=== PATIENT | male | born 1985 | race Caucasian/White ===

== ENCOUNTER 2020-02-24 20:53 | Emergency (ER) | payer BC ==
[2020-02-24] MEDS ORDERED: Amoxicillin/Clavulanate K 875-125 MG Tab PO ONE (21:02)
[2020-02-24] MEDS ORDERED: Bacitracin Oint 1 GM U/D Packet TOP ONE (21:02)
[2020-02-24] MEDS ORDERED: Lidocaine 1% 10 ML MDV INJECT ONE ×2 (21:02→22:09)
--- NOTE | 2020-02-24 21:02 | EDM.PDOC ---
ED HPI GENERAL MEDICAL PROBLEM - General Chief Complaint: Bite:Animal, Insect Stated Complaint: DOG BITE Time Seen by Provider: 02/24/20 21:00 Source of Information: Reports: Patient History Limitations: Reports: No Limitations - History of Present Illness INITIAL COMMENTS - FREE TEXT/NARRATIVE: HISTORY AND PHYSICAL: History of present illness: Is a 35-year-old male who presents to the emergency room with complaints of a laceration/dog bite to his distal left third digit. This is along the nailbed although does not go through the nail itself. States his tetanus has been u pdated in the last 2 years. His dog's immunizations are up-to-date. He offers no systemic complaints or concerns. Review of systems: As per history of present illness and below otherwise all systems reviewed and negative. Past medical history: As per history of present illness and as reviewed below otherwise noncontributory. Surgical history: As per history of present illness and as reviewed below otherwise noncontributory. Social history: See social history for further information Family history: As per history of present illness and as reviewed below otherwise noncontributory. Physical exam: General: Well developed and well nourished 35-year-old male. Alert and oriented. Nontoxic-appearing and in no acute distress. HEENT: Atraumatic, normocephalic, pupils equal and reactive bilaterally, negative for conjunctival pallor or scleral icterus, mucous membranes moist, TMs normal bilaterally, throat clear, neck supple, nontender, trachea midline. No drooling or trismus noted. No meningeal signs. No hot potato voice noted. Lungs: Clear to auscultation, breath sounds equal bilaterally, chest nontender. Heart: S1S2, regular rate and rhythm without overt murmur Abdomen: Soft, nondistended, nontender. Skin: 2.5 cm laceration to distal finger tip of left 3rd digit, does not involve the nail. Tissue swelling noted at site. Otherwise skin is intact, warm, dry. No lesions or rashes noted. Extremities: See SKIN for details. He moves all extremities per self without difficulty or deficits. Neurovascular unremarkable. Neuro: Awake, alert, oriented. Cranial nerves II through XII unremarkable. Cerebellum unremarkable. Motor and sensory unremarkable throughout. Exam nonfocal. Notes: 3 shows a minimally comminuted and displaced fracture in the distal tuft of the left third digit. Soft tissue injury is noted. 1% lidocaine was used to anesthetize the area. The area was thoroughly cleansed and irrigated with wound wash and chlorhexidine. 4-0 nylon, #5 interrupted sutures were placed to tack the skin together. We discussed in great length signs and symptoms that would prompt him to return to the emergency room and for the need for follow-up with the hand surgeon. I did give him the hand surgeon information with instruction for follow-up. Spoon splint was given for comfort. Follow-up, medication and supportive care measures were reviewed and discussed. Voices understanding and is agreeable to plan of care. Denies any further questions or concerns at this time. Diagnostics: Finger x-ray Therapeutics: Lidocaine, Augmentin, Bacitracin, finger splint Prescription: Augmentin, [place] Impression: Dog bite Tuft fracture Plan: 1. Gently wash the area with mild soap and water twice daily. Keep the area clean and dry. Continue to monitor for signs of infection. This type of injury is high risk of infection. If your symptoms should worsen, new symptoms develop or any of the signs and symptoms we discussed should arise please return to the emergency room or call 911 (if needed). 2. Sutures to be removed in 7-10 days. The antibiotic as prescribed. 3. Tylenol and/or ibuprofen as needed for pain management. 4. Please follow-up with hand surgeon should any complications develop as we discussed. Definitive disposition and diagnosis as appropriate pending reevaluation and review of above. Left Finger-Middle Pain Score (Numeric/FACES): 5 - Related Data Allergies Allergy/AdvReac Type Severity Reaction Status Date / Time banana Allergy Other Verified 02/24/20 21:26 Home Meds: Home Meds Venlafaxine HCl [Venlafaxine ER] 150 mg PO DAILY 02/24/20 [History] lamoTRIgine [Lamictal] 300 mg PO DAILY 02/24/20 [History] ED ROS GENERAL - Review of Systems Review Of Systems: Comprehensive ROS is negative, except as noted in HPI. ED EXAM, ANIMAL BITE - Physical Exam Exam: See Below (See dictation) ED ANIMAL BITE PROCEDURES - Laceration/Wound Repair Left 3rd digit Lac/Wound Length In cm: 2.5 Appearance: Subcutaneous, Irregular Distal NVT: Neuro & Vascular Intact, No Tendon Injury Anesthetic Type: Local Local Anesthesia - Lidocaine (Xylocaine): 1% Plain Local Anesthetic Volume: 5cc Skin Prep: Chlorhexidine (Hibiciens), Saline, Sterile Drape Saline Irrigation (cc's): 500 Exploration/Debridement/Repair: Wound Explored, In a Bloodless Field, Explored to Base, No Foreign Material Found Closed With: Sutures Suture Size: 4-0 Suture Type: Nylon, Interrupted, Simple # of Sutures: 5 Drain Placement: No Sterile Dressing Applied: Provider Tetanus Status Addressed: Yes Complications: No Course - Vital Signs Last Recorded V/S: Last Vital Signs Temp 96.0 F L 02/24/20 21:04 Pulse 109 H 02/24/20 21:04 Resp 20 02/24/20 21:04 BP 156/83 H 02/24/20 21:04 Pulse Ox 94 L 02/24/20 21:04 - Orders/Labs/Meds Orders: Active Orders 24 hr Category Date Time Status Communication Order [RC] STAT Care 02/24/20 21:10 Ordered Vaccines to be Administered [RC] PER UNIT ROUTINE Care 02/24/20 21:03 Active DME for Discharge [COMM] Stat Oth 02/24/20 21:10 Ordered Meds: Medications Discontinued Medications Generic Name Dose Route Start Last Admin Trade Name Freq PRN Reason Stop Dose Admin Amoxicillin/Clavulanate Potassium 1 tab 02/24/20 21:02 Augmentin 875 Mg/125 Mg PO 02/24/20 21:03 ONETIME ONE Bacitracin 1 dose 02/24/20 21:02 Bacitracin Oint 1 Gm TOP 02/24/20 21:03 ONETIME ONE Diphtheria/Tetanus/Acell Pertussis 0.5 ml 02/24/20 21:03 Adacel IM 02/24/20 21:04 .ONCE ONE Lidocaine HCl 10 ml 02/24/20 21:02 Xylocaine 1% INJECT 02/24/20 21:03 ONETIME ONE Lidocaine HCl Confirm 02/24/20 21:05 Xylocaine-Mpf 1% Administered 02/24/20 21:06 Dose 5 ml .ROUTE .STK-MED ONE Lidocaine HCl Confirm 02/24/20 21:14 Xylocaine-Mpf 1% Administered 02/24/20 21:15 Dose 5 ml .ROUTE .STK-MED ONE Departure - Departure Time of Disposition: 21:36 Disposition: Home, Self-Care 01 Clinical Impression: Open fracture of tuft of distal phalanx of finger Dog bite Qualifiers: Encounter type: initial encounter Qualified Code(s): W54.0XXA - Bitten by dog, initial encounter - Discharge Information Instructions: Animal Bite, Adult, [id number], Finger Fracture, Adult, [id number] Referrals: Jerome Phelps MD [Primary Care Provider] - Forms: ED Department Discharge Additional Instructions: The following information is given to patients seen in the emergency department who are being discharged to home. This information is to outline your options for follow-up care. We provide all patients seen in our emergency department with a follow-up referral. The need for follow-up, as well as the timing and circumstances, are variable depending upon the specifics of your emergency department visit. If you don't have a primary care physician on staff, we will provide you with a referral. We always advise you to contact your personal physician following an emergency department visit to inform them of the circumstance of the visit and for follow-up with them and/or the need for any referrals to a consulting specialist. The emergency department will also refer you to a specialist when appropriate. This referral assures that you have the opportunity for follow-up care with a specialist. All of these measure are taken in an effort to provide you with optimal care, which includes your follow-up. Under all circumstances we always encourage you to contact your private physician who remains a resource for coordinating your care. When calling for follow-up care, please make the office aware that this follow-up is from your r ecent emergency room visit. If for any reason you are refused follow-up, please contact the [facility] at and asked to speak to the emergency department charge nurse. Dr. Grijalva & Dr. Batres (HAND SURGEON) [place] [address] [place] [address] Thank you for choosing the [facility] emergency department in [place] for your medical needs today. It was a pleasure caring for you. You were seen in the emergency department for dog bite/finger injury. Your x-ray showed a fracture to the distal tip of your finger. This is considered an open fracture as you have a laceration involved with it. Please keep in mind this puts you at high risk for infection. 1. Gently wash the area with mild soap and water twice daily. Keep the area clean and dry. Continue to monitor for signs of infection. This type of injury is high risk of infection. If your symptoms should worsen, new symptoms develop or any of the signs and symptoms we discussed should arise please return to the emergency room or call 911 (if needed). 2. Sutures to be removed in 7-10 days. The antibiotic as prescribed. 3. Tylenol and/or ibuprofen as needed for pain management. 4. Please follow-up with hand surgeon should any complications develop as we discussed. Sepsis Event Note (ED) - Focused Exam Vital Signs: Vital Signs Temp Pulse Resp BP Pulse Ox 02/24/20 21:04 96.0 F L 109 H 20 156/83 H 94 L - My Orders Last 24 Hours: My Active Orders 02/24/20 21:03 Vaccines to be Administered [RC] PER UNIT ROUTINE 02/24/20 21:10 Communication Order [RC] STAT DME for Discharge [COMM] Stat - Assessment/Plan Last 24 Hours: My Active Orders 02/24/20 21:03 Vaccines to be Administered [RC] PER UNIT ROUTINE 02/24/20 21:10 Communication Order [RC] STAT DME for Discharge [COMM] Stat
[2020-02-24] MEDS ORDERED: Diphtheria,Pertussis(Acell),Tetanus Vaccine 0.5 ML Syringe IM ONE (21:03)
--- NOTE | 2020-02-24 21:33 | CR ---
Left third finger: 3 views of the left third finger were obtained. Minimally comminuted and displaced fracture is seen within the distal tuft of the left third finger. Soft tissue injury is noted. No proximal abnormality is seen. Slight cortical thickening is seen within the fifth metacarpal most likely representing old fracture which is healed. Impression: 1. Distal left third finger injury as noted above. Diagnostic code #3 This report was dictated in MDT
== END 2020-02-24 22:32 | disposition home or self-care (01) ==
LOC: MW.ED 20:53
DX: S62.633B Displaced fracture of distal phalanx of left middle finger, initial encounter for open fracture (principal); Z91.018 Allergy to other foods; Z79.899 Other long term (current) drug therapy; W54.0XXA Bitten by dog, initial encounter
CPT/HCPCS: 12001; 73140; 99283; A9270; J2001

== ENCOUNTER 2023-04-09 18:03 | Emergency (ER) | payer BC ==
[2023-04-09] MEDS ORDERED: Sodium Chloride 0.9% 10 ML Syringe FLUSH PRN (20:23)
[2023-04-09] MEDS ORDERED: Sodium Chloride 0.9% 2.5 ML Syringe FLUSH PRN (20:23)
[2023-04-09] MEDS ORDERED: Acetaminophen 500 MG Tab PO STA (20:25)
[2023-04-09] MEDS ORDERED: Ondansetron 4 MG/2 ML SDV IVPUSH STA (20:25)
[2023-04-09] MEDS ORDERED: Sodium Chloride 0.9% 1,000 ML IV STA (20:25)
[2023-04-09 21:06] LABS: BASOPHILS PERCENT AUTO 0.5 % (0.0-1.5); EOSINOPHILS PERCENT AUTO 0.3 % (0.0-7.0); HEMOGLOBIN 16.7 g/dL (13.0-17.0); LYMPHOCYTES ABSOLUTE AUTO 1.6 K/uL (0.6-2.4); LYMPHOCYTES PERCENT AUTO 17.8 % (16.0-40.0); MEAN CORPUSCULAR HEMOGLOBIN 32.7 pg (27.0-32.0); MEAN CORPUSCULAR HGB CONC 34.8 g/dL (31.0-37.0); MEAN CORPUSCULAR VOLUME 93.9 fL (80.0-98.0); MONOCYTES ABSOLUTE AUTO 1.3 K/uL (0.0-0.8); MONOCYTES PERCENT AUTO 14.3 % (0.0-15.0); NEUTROPHILS ABSOLUTE AUTO 5.9 K/uL (1.4-5.7); NEUTROPHILS PERCENT AUTO 67.1 % (48.0-80.0); NRBC ABSOLUTE 0 K/uL; PLATELET COUNT,PLT 199 K/uL (150-400); RED BLOOD CELL COUNT 5.11 M/uL (4.50-5.90); WHITE BLOOD CELL COUNT,WBC 8.83 K/uL (4.0-11.0)
[2023-04-09 21:19] LABS: INR 0.98 (0.86-1.11)
[2023-04-09 21:46] LABS: APPEARANCE,URINE CLEAR; BILIRUBIN,URINE NEGATIVE (NEGATIVE); COLOR,URINE YELLOW; GLUCOSE,URINE NEGATIVE (NEGATIVE); KETONES,URINE NEGATIVE (NEGATIVE); LEUKOCYTE ESTERASE,URINE NEGATIVE (NEGATIVE); NITRITE,URINE NEGATIVE (NEGATIVE); OCCULT BLOOD,URINE NEGATIVE (NEGATIVE); PROTEIN,URINE NEGATIVE (NEGATIVE); UROBILINOGEN,URINE 0.2 EU/dL (<2.0)
[2023-04-09 21:52] LABS: A/G RATIO 1.1 (0.9-1.6); ALBUMIN 4.2 g/dL (3.4-5.0); BILIRUBIN TOTAL 0.9 mg/dL (0.2-1.0); CALCIUM 9.2 mg/dL (8.5-10.1); CREATININE 1.1 mg/dL (0.8-1.3); EST CRCL DRUG DOSING (CG) 106.69 mL/min; PROTEIN TOTAL,TP 8.1 g/dL (6.4-8.2)
[2023-04-09] MEDS ORDERED: ceFAZolin 2 GM in Sodium Chloride 0.9% 50 ML IV STA (21:52)
== END 2023-04-09 23:01 | disposition home or self-care (01) ==
LOC: MW.ED 18:03
DX: R00.2 Palpitations (principal); M79.89 Other specified soft tissue disorders; R50.9 Fever, unspecified; F17.210 Nicotine dependence, cigarettes, uncomplicated; Z79.899 Other long term (current) drug therapy; Z20.822 Contact with and (suspected) exposure to COVID-19; Z91.018 Allergy to other foods
CPT/HCPCS: 36415; 80053; 81003; 83605; 84484; 85025; 85610; 85652; 86140; 87040; 93005; 93010; 96361; 96365; 96375; 99284; 99285-25; A9270-GY; J0690; J2405; J3490; J7030; U0002

== ENCOUNTER 2023-06-12 23:06 | Emergency (ER) | payer BC ==
[2023-06-12] MEDS ORDERED: Sodium Chloride 0.9% 1,000 ML IV ONE (23:33)
[2023-06-12] MEDS ORDERED: Sodium Chloride 0.9% 2.5 ML Syringe FLUSH PRN (23:33)
[2023-06-12] MEDS ORDERED: Sodium Chloride 0.9% 10 ML Syringe FLUSH PRN (23:33)
[2023-06-13 00:19] LABS: BASOPHILS ABSOLUTE AUTO 0.06 K/uL (0.00-0.20); BASOPHILS PERCENT AUTO 0.5 % (0.0-1.0); EOSINOPHILS ABSOLUTE AUTO 0.18 K/uL (0.00-0.45); EOSINOPHILS PERCENT AUTO 1.5 % (0.0-6.0); HEMATOCRIT 41.1 % (42.0-52.0); HEMOGLOBIN 14.4 g/dL (14.0-18.0); IMMATURE GRAN ABSOLUTE AUTO 0.07 K/uL (0.00-0.05); IMMATURE GRAN PERCENT AUTO 0.6 % (0.0-0.4); LYMPHOCYTES ABSOLUTE AUTO 1.91 K/uL (1.00-4.80); LYMPHOCYTES PERCENT AUTO 15.8 % (24.0-44.0); MEAN CORPUSCULAR HEMOGLOBIN 32.7 pg (28.0-32.0); MEAN CORPUSCULAR VOLUME 93.4 fL (83.0-99.0); MEAN PLATELET VOLUME 9.4 fL (9.4-12.4); MONOCYTES ABSOLUTE AUTO 0.83 K/uL (0.00-0.80); MONOCYTES PERCENT AUTO 6.9 % (0.0-8.0); NEUTROPHILS ABSOLUTE AUTO 9.02 K/uL (1.80-7.70); NEUTROPHILS PERCENT AUTO 74.7 % (41.0-71.0); PLATELET COUNT,PLT 217 K/uL (150-400); WHITE BLOOD CELL COUNT,WBC 12.07 K/uL (3.9-11.3)
[2023-06-13 00:53] LABS: A/G RATIO 0.9 (0.9-1.6); ALBUMIN 3.4 g/dL (3.4-5.0); BILIRUBIN TOTAL 0.6 mg/dL (0.2-1.0); CALCIUM 8.8 mg/dL (8.5-10.1); CARBON DIOXIDE,CO2 29.7 mmol/L (21.0-32.0); CREATININE 1.2 mg/dL (0.8-1.3); EST CRCL DRUG DOSING (CG) 95.14 mL/min; PROTEIN TOTAL,TP 7.3 g/dL (6.4-8.2); TSH ULTRASENSITIVE 1.9 uIU/mL (0.36-3.74)
[2023-06-13 01:44] LABS: AMPHETAMINES SCREEN, URINE NEGATIVE (CUTOFF=500); BARBITURATE SCREEN,URINE NEGATIVE (CUTOFF=200); BENZODIAZEPINES SCREEN,URINE NEGATIVE (CUTOFF=150); BUPRENORPHINE SCREEN,URINE NEGATIVE (CUTOFF=10); METHADONE SCREEN, URINE NEGATIVE (CUTOFF=200); METHAMPHETAMINES SCREEN, URINE NEGATIVE (CUTOFF=500); OXYCODONE SCREEN,URINE NEGATIVE (CUT0FF=100); PCP SCREEN,URINE NEGATIVE (CUTOFF=25); THC SCREEN,URINE 20 NG/ML PRESUMPTIVE POSITIVE (CUTOFF=50)
== END 2023-06-13 02:51 | disposition home or self-care (01) ==
LOC: MW.ED 23:06
DX: R55 Syncope and collapse (principal); Z91.018 Allergy to other foods
CPT/HCPCS: 36415; 70450; 73562; 80053; 80305; 82550; 84443; 85025; 93005; 96360; 99285; J3490; J7030; 93010; 99282